=== PATIENT | female | born 1985 | race Caucasian/White ===

== ENCOUNTER 2017-03-24 10:46 | Emergency (ER) | payer MEDICAID ==
[~2017-03-24] VITALS: Ht 147.3 cm; Wt 73.5 kg
[2017-03-24 10:55] VITALS: BP 131/78; Ht 147.3 cm; Wt 73.5 kg
== END 2017-03-24 13:08 | disposition home or self-care (01) ==
LOC: ED 10:46
DX: B34.9 Viral infection, unspecified (principal)
CPT/HCPCS: 87804; Q0092

== ENCOUNTER 2017-06-08 06:55 | Emergency (ER) | payer MEDICAID ==
[~2017-06-08] VITALS: Ht 147.3 cm; Wt 73.7 kg
[2017-06-08 07:02] VITALS: Ht 147.3 cm; Wt 73.7 kg
[2017-06-08 07:51] LABS: BASOPHIL % 0.6 % (0-2); PLATELET COUNT 260 x10^3mcL (130-400); RED CELL DISTRIBUTION WIDTH 12.4 % (11.5-14.5)
[2017-06-08 08:09] LABS: CALCIUM 8.7 mg/dL (8.5-10.1); CARBON DIOXIDE 26.1 mmol/L (21-32); CREATININE SERUM 0.7 mg/dL (0.6-1.0); GFR1 > 60 mL/min; GLUCOSE SERUM 104 mg/dL (74-106); POTASSIUM SERUM 4.4 mmol/L (3.5-5.1); SODIUM SERUM 142 mmol/L (136-145)
[2017-06-08 08:14] LABS: ALBUMIN 3.7 g/dL (3.4-5.0); ALKALINE PHOSPHATASE 63 U/L (46-116); ALT/SGPT 22 U/L (14-59); AST/SGOT 12 U/L (15-37); BILIRUBIN TOTAL 0.21 mg/dL (0.20-1.00); CHLORIDE SERUM 110 mmol/L (98-107); MAGNESIUM 1.7 mg/dL (1.8-2.4); TOTAL PROTEIN, SERUM 6.8 g/dL (6.4-8.2)
[2017-06-08 11:26] VITALS: BP 107/60
== END 2017-06-08 11:26 | disposition home or self-care (01) ==
LOC: ED 06:55
PROVIDERS: Emergency Medicine
DX: M79.602 Pain in left arm (principal); R20.0 Anesthesia of skin
CPT/HCPCS: 36415; 82962; 83880; J1100; J1885